=== PATIENT | male | born 1955 | race Caucasian/White ===

== ENCOUNTER → 2017-05-03 | Outpatient (CLI) | payer OTHER ==
[~2017-05-03] MED LIST: ASPI-621 PO; ASPI-650 PO; ATOR80TA PO; CALC-471 PO; ENAL5TAB34 PO; METO100T3 PO; METO50TA82 PO; MULT-658 PO; NITR0.4T SL; PRAS10TA4 PO; REGADENOSON 0.4 MG/5 ML SYRINGE ONE
== END | disposition home or self-care (01) ==
LOC: CFH 11:50
PROVIDERS: ATTEND Internal Medicine
DX: I25.10 Atherosclerotic heart disease of native coronary artery without angina pectoris (principal); I49.3 Ventricular premature depolarization
CPT/HCPCS: 78452; 93017; A9502; J2785

== ENCOUNTER → 2021-03-23 | Outpatient (CLI) | payer BC, OTHER ==
[~2021-03-23] MED LIST changes: -ASPI-621 PO; -ASPI-650 PO; +ASPI325T20 PO; +ASPI81TA45 PO; -ENAL5TAB34 PO; +ENAL5TAB70 PO; -METO100T3 PO; +METO100T7 PO; -NITR0.4T SL; +NITR0.4T41 SL; -REGADENOSON 0.4 MG/5 ML SYRINGE ONE
== END | disposition home or self-care (01) ==
LOC: CVU 09:32
PROVIDERS: ATTEND Internal Medicine Cardiovascular Disease
DX: I08.8 Other rheumatic multiple valve diseases (principal); I11.9 Hypertensive heart disease without heart failure; I25.10 Atherosclerotic heart disease of native coronary artery without angina pectoris
CPT/HCPCS: 93306